=== PATIENT | male | born 1945 | race Caucasian/White ===

== ENCOUNTER 2016-11-13 09:56 | Emergency (ER) | payer MEDICARE, MEDICAID ==
--- NOTE | 2016-11-17 13:23 | ER ---
ADMIT: 11/13/2016 RM/LOC: ER [facility] MR#: [id number] [address] [facility] [address] [place] [id number] VIRGINIE DEEPAK MATEUSZ [address] [place] [address] Emergency Room Report SEX: M AGE: 71 : 1945 DATE: 11/13/2016 ADDENDUM: This patient comes into the ER because he is having abdominal pain and problems with constipation. He has had this pain for over a month. He was seen in the ER for this previously and diagnosed with constipation. He states his appetite is decreased but he has no vomiting. On physical exam, his abdomen is soft, nontender to palpation. His x-ray showed quite a bit of stool. He was given a bottle of mag citrate, and we talked a lot about taking milk of magnesia at home and following up with his primary if he continues to have problems with constipation. His CBC and CMP were normal. Urinalysis was also normal. Please see my T-sheet. NURA Cisneros / Kentrell Pizano MD / maria del rosario JOB #: [id number] CC: Kentrell Pizano MD, Attending Physician Jose Guadalupe Bowman MD, Family Physician
== END 2016-11-13 13:10 | disposition home or self-care (01) ==
LOC: ER 09:56
DX: K59.00 Constipation, unspecified (principal); F17.210 Nicotine dependence, cigarettes, uncomplicated; Z98.890 Other specified postprocedural states

== ENCOUNTER → 2017-02-07 | Outpatient (CLI) | payer MEDICARE, MEDICAID | END | disposition home or self-care (01) | LOC: RAD.S 09:12 | DX: Z13.6 Encounter for screening for cardiovascular disorders (principal); F17.200 Nicotine dependence, unspecified, uncomplicated ==